=== PATIENT | female | born 2005 | race Caucasian/White ===

== ENCOUNTER 2024-09-18 22:14 | Emergency (ER) | payer OTHER ==
[~2024-09-18] VITALS: Ht 157.5 cm; Wt 74.8 kg
[2024-09-18 23:07] VITALS: RESP 17; TEMP 98.5
[2024-09-19 00:24] LABS: CLARITY,URINE SL CLOUDY (CLEAR); COLOR,URINE YELLOW (YELLOW); PH,URINE 6 (5 - 7)
[2024-09-19 00:25] LABS: BILIRUBIN,URINE NEGATIVE (NEGATIVE); GLUCOSE, URINE NEGATIVE (NEGATIVE); KETONES,URINE NEGATIVE (NEGATIVE); LEUKOCYTE ESTERASE ,URINE TRACE (NEGATIVE); NITRITE,URINE NEGATIVE (NEGATIVE); PROTEIN,URINE DIPSTICK NEGATIVE (NEGATIVE); URINE UROBILINOGEN 0.2 mg/dL (0.2 - 1)
[2024-09-19 00:38] LABS: BACTERIA,URINE MANY /HPF; EPITHELIAL CELLS,URINE MANY /LPF; WBC,URINE (MAN) 21-50 /HPF (0-5)
[2024-09-19] MEDS ORDERED: ONDANSETRON ODT4 MG SL (01:13)
[2024-09-19] MEDS ORDERED: CEFDINIR300 MG PO (01:13)
[2024-09-19 01:16] VITALS: PULSE 79
[2024-09-19 01:21] VITALS: BP 104/57; O2SAT 100
== END 2024-09-19 01:20 | disposition home or self-care (01) ==
LOC: ER 23:22
DX: O23.42 Unspecified infection of urinary tract in pregnancy, second trimester (principal)
CPT/HCPCS: 81001; 99283